=== PATIENT | female | born 1980 | race Caucasian/White ===

== ENCOUNTER 2017-01-17 13:50 | Emergency (ER) | payer BC, OTHER ==
[2017-01-17 13:56] VITALS: BP 111/69
[2017-01-17] MEDS ORDERED: Acetaminophen TAB* 325 MG PO ONE (14:16)
--- NOTE | 2017-01-17 15:09 | RAD ---
Indication: Right foot pain. 3 views of the right foot demonstrates no fracture. No other bone or joint abnormality is identified. Accessory ossicle is noted adjacent to the navicular. IMPRESSION: No fracture of the right foot is noted.
--- NOTE | 2017-01-17 15:32 | ED ---
Lower Extremity - HPI Summary HPI Summary: 36F presents with jammed right pinky today. She hyperextended it against a wall. She previously broke her toe there before. She is currently breast feeding. She denies any numbness or tingling. She has not taken anything for her pain. - History of Current Complaint Chief Complaint: EDExtremityLower Stated Complaint: RT FOOT PAIN Time Seen by Provider: 01/17/17 14:03 Hx Last Menstrual Period: CONTINUOUS CONTROL Pain Intensity: 7 - Allergies/Home Medications Allergies/Adverse Reactions: Allergies Allergy/AdvReac Type Severity Reaction Status Date / Time Penicillins Allergy Unknown Unknown Verified 06/29/14 12:20 Reaction Details Latex Allergy Rash Verified 06/29/14 12:20 Morphine and Related AdvReac dropped BP Verified 06/29/14 12:20 PMH/Surg Hx/FS Hx/Imm Hx Endocrine/Hematology History: Denies: Hx Diabetes Cardiovascular History: Denies: Hx Hypertension, Hx Pacemaker/ICD History: Reports: Hx Kidney Infection - 12 YRS AGO Sensory History: Reports: Hx Contacts or Glasses - GLASSES AT TIMES Denies: Hx Hearing Aid Opthamlomology History: Reports: Hx Contacts or Glasses - GLASSES AT TIMES Psychiatric History: Denies: Hx Panic Disorder - Surgical History Surgery Procedure, Year, and Place: APPENDECTOMY-[facility] [place]. CERVIX BIOPSY- [place] Hx Anesthesia Reactions: Yes - NAUSEA Infectious Disease History: No Infectious Disease History: Denies: Traveled Outside the [place] in Last 30 Days - Family History Known Family History: Positive: Hypertension - Social History Alcohol Use: Occasionally Substance Use Type: Reports: None Smoking Status (MU): Never Smoked Tobacco Review of Systems Negative: Fever Negative: Chest Pain Negative: Shortness Of Breath Positive: Myalgia - right pinky toe All Other Systems Reviewed And Are Negative: Yes Physical Exam Triage Information Reviewed: Yes Vital Signs On Initial Exam: Initial Vitals Temp Pulse Resp BP Pulse Ox 98.3 F 98 18 111/69 99 01/17/17 13:53 01/17/17 13:53 01/17/17 13:53 01/17/17 13:53 01/17/17 13:53 Vital Signs Reviewed: Yes Appearance: Positive: Well-Appearing Skin: Positive: Warm, Dry Head/Face: Positive: Normal Head/Face Inspection Eyes: Positive: Normal, Conjunctiva Clear Respiratory/Lung Sounds: Positive: Clear to Auscultation, Breath Sounds Present Cardiovascular: Positive: Normal, RRR Musculoskeletal: Positive: Other - good pulses, capillary refill 2 secs, tenderness over right pinky toe with no step off. limited ROM of right pinky toe due to pain Diagnostics - Vital Signs Vital Signs Temp Pulse Resp BP Pulse Ox 01/17/17 14:06 98.3 F 98 16 111/69 100 01/17/17 13:53 98.3 F 98 18 111/69 99 - Laboratory Lab Statement: Any lab studies that have been ordered have been reviewed, and results considered in the medical decision making process. - Radiology foot Xray Interpretation: No Acute Changes - IMPRESSION: No fracture of the right foot is noted. Radiology Interpretation Completed By: Radiologist Lower Extremity Course/Dx - Course Course Of Treatment: 36 F presents with right pinky toe pain s/p hyperextending it against a wall. previous fx this foot. limited ROM due to pain of area. xray normal. told to wear hard sole shoes and RICE. patient understands and agrees with plan - Diagnoses Differential Diagnosis/HQI/PQRI: Positive: Fracture (Closed), Sprain, Strain Provider Diagnoses: Right foot pain Discharge - Discharge Plan Condition: Good Disposition: HOME Patient Education Materials: Foot Sprain (ED) Referrals: No Primary Care Phys,NOPCP [Primary Care Provider] - Additional Instructions: Take Tylenol every 6 hours as needed for pain Apply ice, rest, elevate Establish care with primary care physician Return to ED if develop numbness, tingling, inability to move joint, or any new or worsening symptoms
== END 2017-01-17 15:56 | disposition home or self-care (01) ==
LOC: ED 13:50
DX: M79.671 Pain in right foot (principal); M79.674 Pain in right toe(s)
CPT/HCPCS: 99282; A9270-GY

== ENCOUNTER 2017-08-18 09:04 | Emergency (ER) | payer BC, OTHER ==
[2017-08-18 09:46] VITALS: BP 104/89
--- NOTE | 2017-08-18 10:51 | UC ---
Throat Pain/Nasal Margarito HPI - HPI Summary HPI Summary: Patient presents to the ED after waking this morning with R sided lymphadenopathy. She states she returned from [facility] yesterday and her ears "popped" on the plane. She has been fighting a cold, cough, and congestion and symptoms worsened after she arrived home. She notes to some sinus pressure and nasal drainage. Denies fevers, sweats or chills. She has been otherwise healthy and is currently . She denies pain in the area, but there is just a feeling of fullness. She has not tried anything OTC. - History of Current Complaint Chief Complaint: UCGeneralIllness Stated Complaint: SORE THROAT AND COUGH Time Seen by Provider: 08/18/17 10:02 Hx Obtained From: Patient Hx Last Menstrual Period: CONTINUOUS CONTROL ?: No Onset/Duration: Sudden Onset Severity: Mild Pain Intensity: 4 Pain Scale Used: 0-10 Numeric Cough: Nonproductive Associated Signs & Symptoms: Positive: Dysphagia - Epiglottits Risk Factors Epiglottis Risk Factors: Negative - Allergies/Home Medications Allergies/Adverse Reactions: Allergies Allergy/AdvReac Type Severity Reaction Status Date / Time Penicillins Allergy Unknown Unknown Verified 08/18/17 09:45 Reaction Details Latex Allergy Rash Verified 08/18/17 09:45 Morphine and Related AdvReac dropped BP Verified 08/18/17 09:45 PMH/Surg Hx/FS Hx/Imm Hx Previously Healthy: Yes - Surgical History Surgical History: Yes Surgery Procedure, Year, and Place: [facility]CTOMY-[facility] [place]. CERVIX BIOPSY- [place] - Family History Known Family History: Positive: Hypertension - Social History Occupation: Employed Full-time Lives: With Family Alcohol Use: Occasionally Substance Use Type: None Smoking Status (MU): Never Smoked Tobacco Review of Systems Constitutional: Negative Skin: Negative ENT: Other - R sided throat pain/swelling Respiratory: Negative Cardiovascular: Negative Motor: Negative Neurovascular: Negative Neurological: Negative Psychological: Negative Is Patient Immunocompromised?: No All Other Systems Reviewed And Are Negative: Yes Physical Exam Triage Information Reviewed: Yes Appearance: Well-Appearing, Well-Nourished Vital Signs: Initial Vital Signs Temp 97.6 F 08/18/17 09:43 Pulse 75 08/18/17 09:43 Resp 14 08/18/17 09:43 BP 104/89 08/18/17 09:43 Pulse Ox 100 08/18/17 09:43 Vital Signs Reviewed: Yes Eye Exam: Normal Eyes: Positive: Conjunctiva Clear ENT: Positive: Pharynx normal, Nasal drainage, Uvula midline. Negative: Pharyngeal erythema, Nasal congestion, Tonsillar swelling, Tonsillar exudate, Hoarse voice, Dental tenderness, Sinus tenderness Dental Exam: Normal Neck: Positive: Nontender, Enlarged Nodes @ - R cervical anterior Cardiovascular Exam: Normal Cardiovascular: Positive: RRR Musculoskeletal Exam: Normal Musculoskeletal: Positive: Strength Intact Neurological Exam: Normal Neurological: Positive: Alert Psychological: Positive: Normal Response To Family Skin Exam: Normal Throat Pain/Nasal Course/Dx - Course Course Of Treatment: The patient arrives with R sided neck fullness after her ears "popped" in the plane yesterday after arrival home from [facility]. She denies known sick contacts The area is not painful. Appears to be fluid and no other signs of abscess or infection, no fluctuance or abnormal drainage from inside the mouth. The incidence did not occur while eating, and I do no believe this is an obstructed parotid gland. While there have been noted outbreaks of mumps in [facility], she denies fever, headache, myalgia, fatigue, and anorexia which would suggest MUMPS. She is also UTD on immunizations. I have suggested a short course of antibiotics d/t her recent illness and now lymphadenopathy. Unknown if this is bacterial or viral. She is OK with this plan. She is , so i have given her considerations and parameters related to the Clindamycin prescribed to her. This is likely a collection of sinus fluid/ ear drainage fluid which is now worsening her cough/congestion symptoms. Clindamycin safe in . Airway patent. No other swelling visualized. - Differential Dx/Diagnosis Differential Diagnosis/HQI/PQRI: URI Provider Diagnoses: URI Discharge - Discharge Plan Condition: Stable Disposition: HOME Prescriptions: Clindamycin Cap(NF) [Clindamycin Cap 300 mg Cap(NF)] 300 mg PO Q6H #20 cap Patient Education Materials: Lymphadenopathy (ED), Upper Respiratory Infection (ED) Referrals: No Primary Care Phys,NOPCP [Primary Care Provider] - Additional Instructions: Please follow up with your PCP in 3-5 days if your symptoms have not resolved. We did not perform a strep swab today, if you develop sore throat - return to the ED
== END 2017-08-18 10:21 | disposition home or self-care (01) ==
LOC: UCEAST 09:04
DX: J06.9 Acute upper respiratory infection, unspecified (principal); Z88.0 Allergy status to penicillin; Z88.5 Allergy status to narcotic agent; Z91.040 Latex allergy status
CPT/HCPCS: 99212; G0463